=== PATIENT | female | born 1935 | race Caucasian/White ===

== ENCOUNTER → 2017-04-05 | Outpatient (CLI) | payer MEDICARE, BC ==
[~2017-04-05] MED LIST: AMIODARONE PO; ASPIRINEC PO; COZAAR PO; HCTZ PO; NASONEX17 GM; NEXIUM PO; NORVASC PO; SINGULAIR PO; SYNTHROID PO; TYLENOL #3 PO; VICODIN 5/500 T1 TAB PO; ZOCOR PO; ZYRTEC PO
--- NOTE | ~2017-04-05 | CT57 ---
[facility] A Service of [facility] & [facility] RADIOLOGY TEXT RESULTS PATIENT: ANDRADE RODRIGUEZ LOCATION: [facility] : 34 UNIT #: [id number] AGE: [address]: Vandana Buchanan MD SEX: F ORDER DR: [id number] [address] [address] [id number] O MR#: [id number] Acc #: [id number] NAME: ANDRADE RODRIGUEZ. : 1935 SEX: F STUDY DATE/TIME: 04/05/2017 9:42 UNIT: [facility] ROOM: STUDY DESCRIPTION: CT Chest Wo Cont Attending Physician: Vandana Buchanan M.D. Referring Physician: Vandana Buchanan M.D. Ordering Physician: Vandana Buchanan M.D. Primary Care Physician: Vandana Buchanan M.D. MEDICAL IMAGING REPORT This report is preliminary unless electronic signature is present. EXAM CT of the chest without contrast INDICATION 81-year-old female with followup pulmonary nodule. She is a prior history of breast cancer on the left. TECHNIQUE CT of the chest was performed without contrast. Coronal and sagittal reformatted images were obtained. This CT exam was performed with one or more of the following radiation dose reduction techniques: Automatic exposure control, adjustment of mA and/or kV according to patient size, and iterative reconstruction. COMPARISON Compared with outside CT of the chest from 09/10/2016. FINDINGS There are multiple scattered tiny nodules within both lungs, more so on the right. These are all stable compared with 09/10/2016. Index nodule within the right lower lobe on image 33 measures 5 mL, unchanged. There are no new nodules. There are postoperative changes within the left breast. There is no suspicious lymphadenopathy or pleural effusion. Limited imaging of the upper abdomen demonstrates a stable cyst within the liver. The bone windows are unremarkable. IMPRESSION Stable scattered tiny nodules within the lungs. Index nodule in the right lower lobe measures 5 mm. No new nodules. These could be followed up again in another 6 months to document continued stability. [facility] A Service of [facility] & [facility] RADIOLOGY TEXT RESULTS PATIENT: ANDRADE RODRIGUEZ LOCATION: [facility] : 34 UNIT #: [id number] AGE: [address]: Vandana Buchanan MD SEX: F ORDER DR: Dictated by... Albert Castillo M.D. THIS IS AN ELECTRONICALLY VERIFIED REPORT Albert Castillo M.D. at 04/12/2017 7:36 AM LYLY/tonia TD: 04/11/2017 10:59 JOB #: [id number] MEDICAL IMAGING REPORT Page 1 of 1
== END | disposition home or self-care (01) ==
LOC: SCT 09:26
DX: R91.1 Solitary pulmonary nodule (principal); R91.8 Other nonspecific abnormal finding of lung field
CPT/HCPCS: 71250

== ENCOUNTER → 2017-05-19 | Outpatient (CLI) | payer MEDICARE, BC ==
--- NOTE | ~2017-05-19 | MY29 ---
[facility] A Service of [facility] & [facility] RADIOLOGY TEXT RESULTS PATIENT: ANDRADE RODRIGUEZ LOCATION: [facility] : 34 UNIT #: [id number] AGE: [address]: Vandana Buchanan MD SEX: F ORDER DR: [id number] [facility] [address] [place], [place] [address] [id number] O MR#: [id number] Acc #: [id number] NAME: ANDRADE RODRIGUEZ. : 1935 SEX: F STUDY DATE/TIME: 05/19/2017 15:02 UNIT: [facility] ROOM: STUDY DESCRIPTION: MY [place] SCREENING W/ CAD BILAT Attending Physician: Vandana Buchanan M.D. Referring Physician: Vandana Buchanan M.D. Ordering Physician: Vandana Buchanan M.D. Primary Care Physician: Vandana Buchanan M.D. MEDICAL IMAGING REPORT This report is preliminary unless electronic signature is present EXAM Bilateral digital screening mammogram with CAD INDICATIONS Breast cancer screening. 81-year-old asymptomatic female with a history of left breast cancer treated with lumpectomy patient reports a daughter with premenopausal breast cancer. COMPARISON March 16, 2016 December 06, 2014 July 23, 2013 July 24, 2012, July 20, 2011 July 14, 2010 November 07, 2009, October 20, 2009 and October 14, 2009 September 21, 2008 January 17, 2008 and May 09, 2006 FINDINGS There are scattered fibroglandular densities. There is progressive benign rim calcification of oil cysts at the lumpectomy bed in the 4 o'clock middle third of the left breast. There is stable scarring at the lumpectomy bed. There are no suspicious findings in either breast. IMPRESSION No mammographic evidence of malignancy in either breast. Benign postsurgical changes of the left breast. Continued annual screening mammography is recommended for as long as patient is in good health ([employer]). Patients over the age of 40 are entered into a reminder system with target due date for the next mammogram. A result letter will also be sent to the patient. BIRADS: 2, benign findings Dictated by... [facility] A Service of [facility] & [facility] RADIOLOGY TEXT RESULTS PATIENT: ANDRADE RODRIGUEZ LOCATION: [facility] : 34 UNIT #: [id number] AGE: [address]: Vandana Buchanan MD SEX: F ORDER DR: Howard Gaviria M.D. THIS IS AN ELECTRONICALLY VERIFIED REPORT Howard Gaviria M.D. at 05/22/2017 10:22 PM BETINA/radha TD: 05/19/2017 22:25 JOB #: [id number] MEDICAL IMAGING REPORT Page 1 of 1 COPY
== END | disposition home or self-care (01) ==
LOC: CWCC 14:34
DX: Z12.31 Encounter for screening mammogram for malignant neoplasm of breast (principal); Z85.3 Personal history of malignant neoplasm of breast; Z80.3 Family history of malignant neoplasm of breast; Z98.890 Other specified postprocedural states
CPT/HCPCS: G0202

== ENCOUNTER → 2017-06-27 | Outpatient (CLI) | payer MEDICARE, BC ==
--- NOTE | ~2017-06-27 | CR63 ---
[facility]. [facility] A Service of [facility] & [facility] RADIOLOGY TEXT RESULTS PATIENT: ANDRADE RODRIGUEZ LOCATION: [facility] : 34 UNIT #: [id number] AGE: [address]: Vandana Buchanan MD SEX: F ORDER DR: [id number] [place] [id number] O MR#: [id number] Acc #: [id number] NAME: ANDRADE RODRIGUEZ : 1935 SEX: F STUDY DATE/TIME: 06/27/2017 16:18 UNIT: [facility] ROOM: STUDY DESCRIPTION: CR Chest 2 View Attending Physician: Vandana Buchanan M.D. Referring Physician: Vandana Buchanan M.D. Ordering Physician: Vandana Buchanan M.D. Primary Care Physician: Vandana Buchanan M.D. MEDICAL IMAGING REPORT This report is preliminary unless electronic signature is present. EXAM PA and lateral chest INDICATION Cough for 2 weeks. COMPARISON 03/10/2016 FINDINGS Stable chronic appearing mild interstitial opacities. Mild cardiomegaly. No consolidation. No evidence for pleural effusion. Degenerative change of the thoracic spine and shoulders. IMPRESSION Stable chronic-appearing mild interstitial opacities. Dictated by... Albert Castillo M.D. THIS IS AN ELECTRONICALLY VERIFIED REPORT Albert Castillo M.D. at 06/29/2017 7:23 AM LYLY/porter TD: 06/28/2017 10:28 JOB #: [id number] MEDICAL IMAGING REPORT Page 1 of 1
== END | disposition home or self-care (01) ==
LOC: SRAD 16:12
DX: R05 Cough (principal); J84.89 Other specified interstitial pulmonary diseases
CPT/HCPCS: 71020